=== PATIENT | male | born 1995 | race American Indian/Alaskan Native ===

== ENCOUNTER 2019-06-17 15:10 | Emergency (ER) | payer SELFPAY ==
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
[2019-06-17 16:26] LABS: Basophils # (Auto) 0.1 K/mm3 (0.0-0.1); Eosinophils # (Auto) 0.1 K/mm3 (0.0-0.4); Eosinophils % (Auto) 0.8 % (0.0-4.3); Hematocrit 45.2 % (35.5-45.6); Hemoglobin 14.8 gm/dl (11.8-15.2); Lymphocytes % (Auto) 26.4 % (13.4-35.0); Mean Corpuscular HGB Conc 33 % (32-34); Mean Corpuscular Volume 88 fl (84-94); Monocytes # (Auto) 0.3 K/mm3 (0.0-0.8); Monocytes % (Auto) 4.4 % (0.0-7.3); Platelet Count 307 K/mm3 (140-440); Red Blood Count 5.13 M/mm3 (3.65-5.03); Red Cell Distribution Width 14.4 % (13.2-15.2)
[2019-06-17 16:46] LABS: Alanine Aminotransferase 28 units/L (7-56); BUN/Creatinine Ratio 11; Blood Urea Nitrogen 11 mg/dL (9-20); Calcium 9.5 mg/dL (8.4-10.2); Hemolysis Index 8
[2019-06-18 02:38] LABS: Bilirubin,Urine NEG (Negative); Blood,Urine NEG (Negative); Color,Urine Yellow (Yellow); Mucus,Urine FEW /HPF
[2019-06-18 02:45] LABS: Amphetamine Screen,Urine PRESUMPTIVE NEGATIVE; Benzodiazepines Screen,Urine PRESUMPTIVE NEGATIVE; Cocaine Screen,Urine PRESUMPTIVE NEGATIVE; Methadone Screen,Urine PRESUMPTIVE NEGATIVE; Opiate Screen,Urine PRESUMPTIVE NEGATIVE
[2019-06-18 02:58] LABS: Cannabinoid Screen,Urine PRESUMPTIVE POSITIVE
[2019-06-18 08:53] VITALS: BP 116/64
--- NOTE | 2019-06-18 12:38 | Consultation ---
History of Present Illness - Reason for Consult Consult date: 06/18/19 Reason for consult: suicidal thoughts - History of Present Psychiatric Illness Ned Tena is a 23y/o male patient who was brought to the ER for suicidal ideation. During my interview with the patient this morning, he calm and cooperative. He is a/o x 4. He makes good eye contact. The patient verbalizes regret of his actions. Upon entering his room, Mr. Tena states, "I told them I was going to kill myself. I shouldn't have said that. I regret it. It's not worth it." When asking the patient what brought him to the conclusion he has now, he replies, "I though about it. I'm away from my mom and my siblings. It's not worth it." He says "this is the first time I've felt like this. I've never had thoughts about hurting myself." The patient states he "had been doing meth all week prior." He says, "I think that's what caused it." He denies any past suicide attempts or thoughts. He also denies any past psychiatric history. The patient denies any psych meds now or in the past. The patient says "I'm good now. 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 Spoke with mom via phone. She says she has no reservations of the patient returning home. She corroborates that the patient has never had any suicide attempts or psychiatric history. PAST PSYCHIATRIC HISTORY: Diagnoses: Denies Suicide attempts or Self-harm behavior: this is the first time Prior psychiatric hospitalizations: Denies Substance Abuse history: Meth, THC Previous psychiatric medications tried: Denies Outpatient treatment: Denies PAST MEDICAL HISTORY: None reported Family Psychiatric History None reported or documented SOCIAL HISTORY Marital Status: Single Living Arrangements: Mother Employment Status: Unemployed Access to guns/weapons: Not anymore Education: Certified HVAC History of Abuse: Denies ROS: Constitutional: Negative for weight loss ENT: Negative for stridor Respiratory: Negative for cough or hemoptysis All other systems reviewed and are negative MENTAL STATUS General Appearance: Dressed appropriately Behavior: calm and cooperative Mood: "good" Affect: Congruent Thought Process: Goal-directed Speech: Normal tone and pace Suicidal Ideation: Denies Homicidal Ideation: Denies Hallucinations: Denies Delusions: None elicited Insight and Judgment: Fiar Memory/Cognition: Good Diagnoses: Substance Induced Mood Disorder Plan D/C 1013 No scripts at this time Medical: Per primary Sitter: Defer to primary Disposition: The patient does not meet the requirement for acute hospitalization at this time. She may discharge home once medically cleared. The patient and his mother verbalize understanding and agreement of treatment plan. They were advised that if SI/HI arise, the patient should seek immediate assistance including but not limited to, crisis hotline, 911, and/or ER. Manager Sustainability to give the patient resources for outpatient psychiatry and drug treatment programs The patient is to follow up with outpatient psychiatry or primary doctor in 7 to 14 days. The patient is to abstain from all illicit drug use and alcohol. Will sign off. Please call with any questions or concerns. Thank you for this consult. Medications and Allergies Allergies Allergy/AdvReac Type Severity Reaction Status Date / Time No Known Allergies Allergy Unverified 06/17/19 15:35 Home Medications Medication Instructions Recorded Confirmed Last Taken Type No Known Home Medications [No 06/18/19 06/18/19 Unknown History Reported Home Medications] Mental Status Exam - Vital signs Last Vital Signs Temp 97.6 F 06/18/19 08:50 Pulse 101 H 06/18/19 08:50 Resp 18 06/18/19 08:50 BP 116/64 06/18/19 08:50 Pulse Ox 97 06/18/19 08:50 Results Result Diagrams: 06/17/19 16:06 06/17/19 16:06 Abnormal lab results 06/17/19 06/17/19 06/17/19 Range/Units 16:06 16:06 16:06 RBC 5.13 H (3.65-5.03) M/mm3 Salicylates < 0.3 L (2.8-20.0) mg/dL Acetaminophen < 5.0 L (10.0-30.0) ug/mL All other labs normal.
== END 2019-06-18 15:45 | disposition home or self-care (01) ==
LOC: ED 15:10
DX: F32.89 Other specified depressive episodes (principal); F17.200 Nicotine dependence, unspecified, uncomplicated; F12.10 Cannabis abuse, uncomplicated; F15.10 Other stimulant abuse, uncomplicated; Z79.899 Other long term (current) drug therapy
CPT/HCPCS: 36415; 80053; 80307; 80320; 81001; 85025; G0480

== ENCOUNTER 2019-10-23 09:22 | Emergency (ER) | payer SELFPAY ==
[2019-10-23] MEDS ORDERED: DIPHtheria,PERTUSSIS(ACELL),TETANUS VACCINE/PF 0.5 ML VIAL IM ONE ×2 (11:50→11:52)
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
--- NOTE | 2019-10-23 12:26 | XRay Report ---
RIGHT HAND 3 VIEWS INDICATION / CLINICAL INFORMATION: Right hand pain with laceration. COMPARISON: None available. FINDINGS: BONES and JOINT(S): No acute fracture or subluxation. No significant arthritis. SOFT TISSUES: No significant abnormality. ADDITIONAL FINDINGS: None. IMPRESSION: 1. No acute findings. Signer Name: Cholo Concepcion MD Signed: 10/23/2019 12:21 PM Workstation Name: [id number]
[2019-10-23 12:53] VITALS: BP 141/93
== END 2019-10-23 12:51 | disposition home or self-care (01) ==
LOC: ED 09:22
DX: S61.411A Laceration without foreign body of right hand, initial encounter (principal); F17.200 Nicotine dependence, unspecified, uncomplicated; F12.10 Cannabis abuse, uncomplicated; K50.90 Crohn's disease, unspecified, without complications; X58.XXXA Exposure to other specified factors, initial encounter; Y93.89 Activity, other specified; Y92.89 Other specified places as the place of occurrence of the external cause; Y99.8 Other external cause status
CPT/HCPCS: 90471; 90715; 99283